=== PATIENT | male | born 1990 | race Asian ===

== ENCOUNTER 2016-07-15 13:38 | Emergency (ER) | payer MEDICAID ==
[~2016-07-15] VITALS: Ht 165.1 cm; Wt 59.1 kg
[2016-07-15] MEDS ORDERED: ADV250 IH (14:09)
[2016-07-15] MEDS ORDERED: MOME17N NASAL (14:09)
[2016-07-15] MEDS ORDERED: FEXO-58 PO (14:09)
[2016-07-15] MEDS ORDERED: HYDR28CR45 TP (14:09)
[2016-07-15] MEDS ORDERED: ALBU8HFA4 IH (14:09)
[2016-07-15 15:25] VITALS: BP 140/91
[2016-07-15] MEDS ORDERED: LIDOCAINE HCL BUFFERED 1% 20 ML VIAL INJ ONE (15:30)
== END 2016-07-15 16:18 | disposition home or self-care (01) ==
LOC: EMS 13:41
DX: S61.215A Laceration without foreign body of left ring finger without damage to nail, initial encounter (principal); J45.909 Unspecified asthma, uncomplicated; W26.0XXA Contact with knife, initial encounter; Y93.89 Activity, other specified; Y92.512 Supermarket, store or market as the place of occurrence of the external cause; Y99.8 Other external cause status
CPT/HCPCS: 12001; 99283; J3490